=== PATIENT | male | born 1940 | race Caucasian/White ===

== ENCOUNTER → 2017-07-05 | Outpatient (CLI) | payer OTHER | LOC: CIMAGING 09:09 | PROVIDERS: ATTEND Internal Medicine Pulmonary Disease | DX: R91.8 Other nonspecific abnormal finding of lung field (principal); Z87.891 Personal history of nicotine dependence; Z85.46 Personal history of malignant neoplasm of prostate | CPT/HCPCS: 71250-PO ==

== ENCOUNTER → 2018-07-22 | Outpatient (CLI) | payer OTHER | LOC: FIMAGING 09:07 ==